=== PATIENT | female | born 1995 | race Caucasian/White ===

== ENCOUNTER 2018-02-21 11:08 | Emergency (ER) | payer MEDICAID, OTHER ==
[2018-02-21 11:36] VITALS: BMI 33.8
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
[2018-02-21 12:11] VITALS: TEMP 98
[2018-02-21 12:32] LABS: SQUAMOUS EPITHIAL 4 /hpf (0-5); URINE BACTERIA RARE (<OCC); URINE BILIRUBIN NEGATIVE (NEGATIVE); URINE BLOOD NEGATIVE (NEGATIVE); URINE CLARITY SLIGHTY-CLOUDY (Clear); URINE COLOR YELLOW (YELLOW); URINE GLUCOSE (UA) NEG (Normal); URINE LEUKOCYTE ESTERASE SMALL Leu/uL (Negative); URINE PROTEIN NEGATIVE (NEGATIVE); URINE UROBILINOGEN 0.2-1.0 mg/dL (0.2-1.0)
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
[2018-02-21 15:39] VITALS: BP 120/78; PULSE 74; RESP 20; O2SAT 98
== END 2018-02-21 15:40 | disposition home or self-care (01) ==
LOC: H.ER 11:08
DX: S09.90XA Unspecified injury of head, initial encounter (principal); V43.52XA Car driver injured in collision with other type car in traffic accident, initial encounter; Y92.410 Unspecified street and highway as the place of occurrence of the external cause; N39.0 Urinary tract infection, site not specified; J32.4 Chronic pansinusitis; F32.9 Major depressive disorder, single episode, unspecified